=== PATIENT | female | born 2005 | race Caucasian/White ===

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

== ENCOUNTER 2025-02-02 09:07 | Inpatient (IN) | payer MEDICAID ==
[2025-02-02] MEDS ORDERED: Sodium Chloride 0.9% 10 ML Syringe FLUSH PRN (10:12)
[2025-02-02] MEDS ORDERED: Carboprost Tromethamine 250 MCG/1 ML Amp IM PRN (10:12)
[2025-02-02] MEDS ORDERED: Oxytocin/Lactated Ringers 30 UNIT/500 ML BAG IV SCH (10:15)
[2025-02-02] MEDS: fentaNYL 100 MCG/2 ML SDV IVPUSH ONE (10:15)
[2025-02-02] MEDS ORDERED: Lactated Ringers 1,000 ML IV SCH (10:15)
[2025-02-02] MEDS: Lactated Ringers 1,000 ML IV ONE ×2 (10:26→23:48)
[2025-02-02] MEDS: Ondansetron 4 MG/2 ML SDV IVPUSH PRN (10:30)
[2025-02-02 10:40] LABS: PLATELET COUNT,PLT 340.0 10^3/uL (150-450)
[2025-02-02 12:11] LABS: APPEARANCE,URINE CLEAR (CLEAR); GLUCOSE,URINE NEGATIVE (NEGATIVE); OCCULT BLOOD,URINE NEGATIVE (NEGATIVE)
[2025-02-02 12:21] LABS: EPITHELIAL CELLS,URINE FEW /HPF (NOT SEEN)
[2025-02-02 12:45] LABS: CREATININE,URINE RAND 101.7 mg/dL (No establ ref range); PROTEIN CREATININE RATIO,URINE 338.2 mg/g (<150.0); PROTEIN,URINE RANDOM 34.4 mg/dL (0.0-11.9)
[2025-02-02] MEDS: Misoprostol 25 MCG (1/4 of 100 MCG) Tab VAG ONE (16:14)
[2025-02-02] MEDS ORDERED: Nalbuphine HCl 10 MG/ 1ML Amp IM ONE (16:39)
[2025-02-02] MEDS: Misoprostol 50 MCG (1/2 of 100 MCG) Tab PO PRN (21:43)
[2025-02-03] MEDS: Triamcinolone Acetonide 0.1% Crm 15 GM Tube TOP SCH (00:15)
[2025-02-03] MEDS ORDERED: ePHEDrine 50 MG/ML SDV IVPUSH PRN (00:16)
[2025-02-03] MEDS ORDERED: Ropivacaine 200 MG in Premix Bag 1 BAG EPIDUR SCH (00:30)
[2025-02-03] MEDS: Nalbuphine HCl 10 MG/ 1ML Amp IM ONE (01:06)
[2025-02-03] MEDS: Oxytocin/Normal Saline 30 UNIT/500 ML BAG IV SCH (02:30)
[2025-02-03] MEDS ORDERED: Hepatitis B Virus Vaccine PF (Pediatric) 10 MCG/0.5 ML Syringe IM ONE (05:10)
[2025-02-03] MEDS ORDERED: Sodium Chloride 0.9% 10 ML Syringe FLUSH PRN (05:14)
[2025-02-03] MEDS ORDERED: Carboprost Tromethamine 250 MCG/1 ML Amp IM PRN (05:14)
[2025-02-03] MEDS ORDERED: Oxytocin 10 Units/1 ML SDV IM PRN (05:14)
[2025-02-03] MEDS ORDERED: Oxytocin/Normal Saline 30 UNIT/500 ML BAG IV SCH (05:15)
[2025-02-03] MEDS: Benzocaine/Menthol 20%-0.5% Spray 78 GM Cannister TOP PRN (05:29)
[2025-02-03] MEDS: Witch Hazel Medicated Pads 100/Jar TOP PRN (08:08)
[2025-02-03] MEDS: Prenatal Multivitamin with Calcium/Folic Acid/Iron Tab PO SCH (08:08)
[2025-02-04 06:22] LABS: PLATELET COUNT,PLT 308.0 10^3/uL (150-450); RED BLOOD CELL COUNT 4.49 10^6/uL (4.2-5.4); WHITE BLOOD CELL COUNT,WBC 12.1 10^3/uL (5.0-10.0)
[2025-02-04] MEDS ORDERED: Ondansetron 4 MG/2 ML SDV IV ONE (10:29)
[2025-02-04] MEDS ORDERED: Ropivacaine 100 ML EPIDUR ONE (10:29)
[2025-02-04] MEDS ORDERED: fentaNYL 100 MCG/2 ML SDV EPIDUR ONE (10:29)
[2025-02-04] MEDS ORDERED: Ketorolac 30 MG/ML SDV IVPUSH ONE (10:29)
[2025-02-04] MEDS: Measles, Mumps & Rubella Vaccine 0.5 ML SDV SUBCUT ONE (10:34)
== END 2025-02-04 10:30 | disposition home or self-care (01) | DRG 807 ==
LOC: DL.OBCHECK 09:07 → DL.OB 14:03 → OBSVTOIN 02-03 04:52
PROVIDERS: ADMIT Student in an Organized Health Care Education/Training Program; ATTEND Student in an Organized Health Care Education/Training Program
PROC: 10E0XZZ Delivery of Products of Conception, External Approach (ICD-10-PCS; principal; 2025-02-03)
PROC: 3E0DXGC Introduction of Other Therapeutic Substance into Mouth and Pharynx, External Approach (ICD-10-PCS; 2025-02-03)
PROC: 3E0R3BZ Introduction of Anesthetic Agent into Spinal Canal, Percutaneous Approach (ICD-10-PCS; 2025-02-03)
PROC: 00HU33Z Insertion of Infusion Device into Spinal Canal, Percutaneous Approach (ICD-10-PCS; 2025-02-03)
PROC: 4A1HXCZ Monitoring of Products of Conception, Cardiac Rate, External Approach (ICD-10-PCS; 2025-02-03)
DX: O14.94 Unspecified pre-eclampsia, complicating childbirth (principal); Z37.0 Single live birth; Z3A.37 37 weeks gestation of pregnancy; O69.81X0 Labor and delivery complicated by cord around neck, without compression, not applicable or unspecified
CPT/HCPCS: 01967; 36415; 51702; 59409; 81001; 82570; 84156; 85018; 85027; 85049; 90471; 90707; A9270-GY; J1885; J2405; J2590; J2795; J3010; J7120